=== PATIENT | female | born 1970 | race Caucasian/White ===

== ENCOUNTER 2018-03-07 21:51 | Emergency (ER) | payer OTHER ==
[2018-03-07 22:23] LABS: VENOUS BASE EXCESS -7.4 (-2.0-2.0); VENOUS HCO3 17.1 MEQ/L (23.0-27.0); VENOUS PARTIAL PRESSURE CO2 31.7 mmHg (38.0-50.0); VENOUS PARTIAL PRESSURE O2 151.4 mmHg (30.0-50.0); VENOUS STANDARD HCO3 18.5 MEQ/L; VENOUS TOTAL CO2 18.1 MEQ/L (24.0-28.0)
[2018-03-07 22:25] LABS: VENOUS O2 SATURATION 98.9 % (60.0-80.0)
[2018-03-07 22:29] LABS: BEDSIDE GLUCOSE 111 MG/DL (70-105)
[2018-03-07 22:34] LABS: BASO % 0.3 % (0.0-1.0); EOS # 0.1 10^3/uL (0.0-0.50); EOS % 1.1 % (0.0-3.0); HEMATOCRIT 36.3 % (36.0-47.0); HEMOGLOBIN 11.8 g/dl (12.0-15.5); IMMATURE GRANULOCYTE % 0.3 % (0-3.0); LYMPH # 3.7 10^3/uL (1.5-4.5); LYMPH % 37.8 % (24.0-44.0); MEAN CORPUSCULAR HEMOGLOBIN 28.2 pg (27.0-33.0); MEAN CORPUSCULAR HGB CONC 32.5 g/dl (32.0-36.5); MEAN CORPUSCULAR VOLUME 86.8 fl (80.0-96.0); MONO # 0.7 10^3/uL (0.0-0.8); MONO % 6.8 % (0.0-5.0); NEUTROPHILS # 5.3 10^3/uL (1.8-7.7); NEUTROPHILS % 53.7 % (36.0-66.0); PLATELET COUNT, AUTOMATED 301 10^3/uL (150-450); RED BLOOD COUNT 4.18 10^6/uL (4.00-5.40); RED CELL DISTRIBUTION WIDTH 13.9 % (11.5-14.5); WHITE BLOOD COUNT 9.8 10^3/uL (4.0-10.0)
[2018-03-07 22:40] LABS: OSMOLALITY SERUM 291 MOSM/KG (275-295)
[2018-03-07] MEDS: NS 1,000 ML IV (22:45)
[2018-03-07 22:46] LABS: LACTIC ACID SEPSIS PROTOCOL 1.2 MMOL/L (0.4-2.0)
[2018-03-07 22:52] LABS: AMMONIA 47 uMOL/L (<32)
[2018-03-07 23:00] LABS: ACETAMINOPHEN LEVEL 4.7 UG/ML (10.0-30.0); ALBUMIN 3.4 GM/DL (3.2-5.2); ALBUMIN/GLOBULIN RATIO 0.94 (1.00-1.93); ALKALINE PHOSPHATASE 55 U/L (45-117); ALT/SGPT 27 U/L (12-78); ANION GAP 10 MEQ/L (8-16); AST/SGOT 12 U/L (7-37); BILIRUBIN,DIRECT < 0.1 MG/DL (0.0-0.2); BILIRUBIN,TOTAL 0.2 MG/DL (0.2-1.0); BLOOD UREA NITROGEN 10 MG/DL (7-18); CALCIUM LEVEL 8.5 MG/DL (8.5-10.1); CARBON DIOXIDE LEVEL 18 MEQ/L (21-32); CHLORIDE LEVEL 116 MEQ/L (98-107); CK-MB VALUE MASS < 1.0 NG/ML (<3.6); CPK CREATINE PHOSPHOKINASE 98 U/L (26-192); CREATININE FOR GFR 0.86 MG/DL (0.55-1.30); GLOMERULAR FILTRATION RATE > 60.0 (>58); GLUCOSE, FASTING 109 MG/DL (70-100); MB/CK RELATIVE INDEX 1.02 (< OR =4); POTASSIUM SERUM 3.8 MEQ/L (3.5-5.1); SALICYLATE LEVEL 3.7 MG/DL (5.0-30.0); SODIUM LEVEL 144 MEQ/L (136-145); TROPONIN I < 0.02 NG/ML (< 0.10)
[2018-03-07 23:16] LABS: CONTROL LINE HCG INT CTR LINE PRESENT; HCG, SERUM QUALITATIVE NEGATIVE (NEGATIVE)
[2018-03-07 23:41] LABS: INR 1.09; PROTHROMBIN TIME 14.2 SECONDS (12.1-14.4)
[2018-03-08 01:32] LABS: AMPHETAMINES LEVEL URINE NEGATIVE (NEGATIVE); BARBITURATES URINE NEGATIVE (NEGATIVE); BENZODIAZEPINES URINE POSITIVE (NEGATIVE); CANNABINOIDS URINE NEGATIVE (NEGATIVE); COCAINE METABOLITE URINE NEGATIVE (NEGATIVE); METHADONE URINE NEGATIVE (NEGATIVE); OPIATES URINE POSITIVE (NEGATIVE); PHENCYCLIDINE URINE NEGATIVE (NEGATIVE)
[2018-03-08 01:34] LABS: KETONE, URINE AUTO RFX NEGATIVE (NEGATIVE); LEUKOCYTE ESTERASE UR AUTO RFX NEGATIVE (NEGATIVE); MUCUS, URINE RFX LARGE (NEGATIVE); RBC, URINE AUTO RFX 1 /HPF (0-3); SPECIFIC GRAVITY UR AUTO RFX 1.025 (1.002-1.035); SQUAM EPITHELIAL CELL UR AURFX 1 /HPF (0-6); WBC, URINE AUTO RFX 3 /HPF (0-3)
[2018-03-08 01:39] LABS: NITRITE, URINE AUTO RFX POSITIVE (NEGATIVE)
[2018-03-12 14:18] LABS: ETHYL ALCOHOL (ETHANOL) < 0.003 % (0.000-0.010)
== END 2018-03-08 05:43 | disposition home or self-care (01) ==
LOC: M ED 21:51
DX: R56.9 Unspecified convulsions (principal); Z86.718 Personal history of other venous thrombosis and embolism; Z79.899 Other long term (current) drug therapy; Z79.01 Long term (current) use of anticoagulants; Z88.1 Allergy status to other antibiotic agents; Z88.8 Allergy status to other drugs, medicaments and biological substances; F17.210 Nicotine dependence, cigarettes, uncomplicated
CPT/HCPCS: 71045

== ENCOUNTER 2020-06-28 13:07 | Emergency (ER) | payer OTHER ==
[~2020-06-28] VITALS: Ht 175.3 cm; Wt 93.7 kg
[~2020-06-28 13:07] MED LIST: BENA25TA10 PO; COLA50CA3 PO; CYCL-707 PO; DIAZ5TAB PO; ELIQ5TAB PO; GABA-845 PO; GABA100C PO; HALC0.25 PO; HYDR-3713 PO; HYDR7.5T38 PO; METH-447 PO; OMEP10CASR PO; PRIL20CA PO; SENO8.6T9 PO; TOPA50TA PO; TOPA50TA8 PO; VITA-112 PO; VITA50005 PO; ZYRT10CA5 PO; [UNRECOGNIZED DRUG - CODE] SC; wellbutrin PO
[2020-06-28] MEDS ORDERED: dexameTHASONE 20MG/5ML VIAL (J1100 PER 1MG) IV ONE (15:15)
[2020-06-28] MEDS ORDERED: NS 1,000 ML IV ONE (15:15)
[2020-06-28] MEDS ORDERED: AMPICILLIN SOD/SULBACTAM SOD 3 GM in D5W MINI-BAG PLUS 100 ML IV ONE (15:15)
[2020-06-28 16:06] LABS: BASO % 0.4 % (0.0-1.0); EOS # 0.1 10^3/uL (0.0-0.5); EOS % 0.6 % (0.0-3.0); HEMOGLOBIN 12.7 g/dl (12.0-15.5); LYMPH # 3.6 10^3/uL (1.5-5.0); LYMPH % 38.4 % (24.0-44.0); MEAN CORPUSCULAR HGB CONC 30.2 g/dl (32.0-36.5); MEAN CORPUSCULAR VOLUME 86.1 fl (80.0-96.0); MONO # 0.5 10^3/uL (0.0-0.8); MONO % 5.7 % (0.0-5.0); NEUTROPHILS # 5.1 10^3/uL (1.5-8.5); NEUTROPHILS % 54.6 % (36.0-66.0); PLATELET COUNT, AUTOMATED 315 10^3/uL (150-450); RED BLOOD COUNT 4.88 10^6/uL (4.00-5.40); WHITE BLOOD COUNT 9.3 10^3/uL (4.0-10.0)
[2020-06-28] MEDS ORDERED: ISOVUE-370 76% 100ML VIAL As Ordered ONE (16:13)
[2020-06-28 16:35] LABS: ALBUMIN 3.8 GM/DL (3.2-5.2); ALT/SGPT 24 U/L (12-78); BILIRUBIN,DIRECT < 0.1 MG/DL (0.0-0.2); BILIRUBIN,TOTAL 0.2 MG/DL (0.2-1.0); C REACTIVE PROTEIN QUANTITATIV 3.82 MG/DL (0.00-0.30); TOTAL PROTEIN 7.9 GM/DL (6.4-8.2)
--- NOTE | 2020-06-28 16:45 | REP ---
INDICATION: swelling right jaw/neck. COMPARISON: Comparison is made with images from C-spine CT study dated March 07, 2018.. TECHNIQUE: Helical scanning is acquired and 3 mm axial images are generated. Coronal and sagittal MPR images are included. 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 Parotid and submandibular glands are normal and symmetric. There is shotty bilateral anterior cervical lymphadenopathy. Few scattered posterior cervical nodes are seen. At the angle of the mandible on the right there is a 1 cm short axis dimension lymph node. There are several submandibular lymph nodes at the upper range of normal. There is an anterior cervical lymph node on the left measuring 9.5 mm in short axis dimension and on the right a similar size nodes measuring 8.2 mm in dimension. There is no abnormal fluid collection to suggest abscess. Apart from the carious maxillary and mandibular teeth bilaterally, no bony destructive lesion is seen. The lung apices are clear. There is a right-sided goiter and there are 2 focal calcifications in the thyroid gland on the right. These findings are unchanged from the March 07, 2018 prior study. The lymph nodes are essentially unchanged as well. The left vertebral artery takes a direct aortic origin which is a normal variant. The right vertebral artery is patent but small compared to the left. No other vascular finding. IMPRESSION: No evidence of mass or abscess. Numerous carious maxillary and mandibular teeth bilaterally. Shotty bilateral cervical lymphadenopathy unchanged from the comparison study of March 07, 2018. There is a right-sided goiter and 2 macro calcifications are noted in the right thyroid lobe unchanged from 2018 prior study. <Electronically signed by Mehdi Ybarra > 06/28/20 0033
[2020-06-28 16:49] LABS: ERYTHROCYTE SEDIMENTATION RATE 28 mm/hr (0-30)
[2020-06-28] MEDS ORDERED: AUGM875T28 PO ×2 (17:05→17:22)
[2020-06-28 17:10] VITALS: BP 120/79
[2020-06-28] MEDS ORDERED: DIFL150T PO (17:22)
== END 2020-06-28 17:23 | disposition home or self-care (01) ==
LOC: M ED 13:07
DX: K04.7 Periapical abscess without sinus (principal); L03.211 Cellulitis of face; K02.9 Dental caries, unspecified; R22.1 Localized swelling, mass and lump, neck; R11.2 Nausea with vomiting, unspecified; R51.9 Headache, unspecified; R13.10 Dysphagia, unspecified; E10.9 Type 1 diabetes mellitus without complications; M54.9 Dorsalgia, unspecified; F43.10 Post-traumatic stress disorder, unspecified; K21.9 Gastro-esophageal reflux disease without esophagitis; N93.8 Other specified abnormal uterine and vaginal bleeding; H81.09 Meniere's disease, unspecified ear; F17.210 Nicotine dependence, cigarettes, uncomplicated; Z86.73 Personal history of transient ischemic attack (TIA), and cerebral infarction without residual deficits; Z88.8 Allergy status to other drugs, medicaments and biological substances; Z79.899 Other long term (current) drug therapy; Z79.01 Long term (current) use of anticoagulants
CPT/HCPCS: 70491; 80047; 80076; 83605; 85025; 85652; 86140; 87040; 96365; 96375; 99284; J1100; Q9967

== ENCOUNTER → 2022-06-28 | Outpatient (CLI) | payer OTHER ==
[~2022-06-28] MED LIST changes: +AUGM875T28 PO; +DIFL150T PO; +GABA-283 PO; -GABA-845 PO
== END ==
LOC: M RAD 13:15
PROVIDERS: ATTEND Nurse Practitioner Family
DX: E04.2 Nontoxic multinodular goiter (principal)

== ENCOUNTER 2023-01-16 10:23 | Emergency (ER) | payer OTHER ==
[~2023-01-16] VITALS: Ht 172.7 cm; Wt 73.0 kg
[2023-01-16] MEDS ORDERED: NORCO, ANEXSIA 5/325MG TABLET (HYDROcodone/ACETAMINOPHEN) PO ONE ×2 (12:40→13:15)
[2023-01-16 12:47] VITALS: BP 122/73; TEMP 97.4; O2SAT 100
[2023-01-16] MEDS ORDERED: mis (13:55)
[2023-01-16] MEDS ORDERED: misc (14:02)
== END 2023-01-16 14:15 | disposition home or self-care (01) ==
LOC: M ED 10:23
DX: S92.211A Displaced fracture of cuboid bone of right foot, initial encounter for closed fracture (principal); W01.0XXA Fall on same level from slipping, tripping and stumbling without subsequent striking against object, initial encounter; Y92.009 Unspecified place in unspecified non-institutional (private) residence as the place of occurrence of the external cause; Y93.01 Activity, walking, marching and hiking; Y99.8 Other external cause status; F17.200 Nicotine dependence, unspecified, uncomplicated; Z88.8 Allergy status to other drugs, medicaments and biological substances; H81.09 Meniere's disease, unspecified ear; Z79.899 Other long term (current) drug therapy; Z79.01 Long term (current) use of anticoagulants; R51.9 Headache, unspecified; E78.00 Pure hypercholesterolemia, unspecified; Z87.442 Personal history of urinary calculi; F43.10 Post-traumatic stress disorder, unspecified

== ENCOUNTER → 2023-01-30 | Outpatient (CLI) | payer OTHER ==
[~2023-01-30] MED LIST changes: -GABA-283 PO; +GABA-284 PO; +mis; +misc
== END ==
LOC: M PLAIMG 11:20
PROVIDERS: ATTEND Podiatrist Foot & Ankle Surgery
DX: M25.571 Pain in right ankle and joints of right foot (principal)